=== PATIENT | female | born 1980 | race American Indian/Alaskan Native ===

== ENCOUNTER 2016-09-27 09:50 | Emergency (ER) | payer OTHER ==
[2016-09-27 10:10] VITALS: BP 102/80
--- NOTE | 2016-09-27 10:23 | Emergency Department Report ---
Entered by AARTI WHEATLEY, acting as scribe for GREGORY RIBEIRO NP. Chief Complaint: Chest Pain Stated Complaint: CHEST PAINS Time Seen by Provider: 09/27/16 10:04 - HPI History of Present Illness: Pt is a 35 y.o. female who presents for evaluation of constant, 8-9/10, gas-like , left-sided chest pain radiating into her left shoulder. She notes that her pain is aggravated with deep breathing and lifting her LUE. She denies other focal pain, erythema to the chest, or wound to the chest. NKI. Pt notes that she has been seeing a physician for left shoulder pain and has a recent abnormal shoulder x-ray, causing her physician to order an MRI (not yet had). - ROS Review of Systems: Positive for chest pain radiating into her left shoulder. Negative for other focal pain, erythema, or wound. - Exam Vital Signs: Vital Signs 09/27/16 10:05 Temperature 97.5 F L Pulse Rate 101 H Respiratory 20 Rate Blood Pressure 102/80 O2 Sat by Pulse 100 Oximetry Physical Exam: Constitutional: Well-nourished and well-developed. Cardiovascular: Chest wall TTP. Musculoskeletal: Decreased ROM to left shoulder. Neuro: A&Ox3 MSE screening note: Focused history and physical exam performed. Due to findings the following was ordered: 10:08, Orders placed for: EKG, CBC, CMP, CK, hCG, troponin, and CXR. ED Disposition for MSE Condition: Stable This documentation as recorded by the scribe,AARTI WHEATLEY,accurately reflects the service I personally performed and the decisions made by QUINTIN ramsey TRACY M, NP.
[2016-09-27 10:29] LABS: Basophils % (Auto) 0.7 % (0.0-1.8); Eosinophils % (Auto) 4.1 % (0.0-4.3); Hematocrit 38.3 % (30.3-42.9); Hemoglobin 12.8 gm/dl (10.1-14.3); Mean Corpuscular HGB Conc 33 % (30-34); Mean Corpuscular Hemoglobin 26 pg (28-32); Mean Corpuscular Volume 78 fl (79-97); Platelet Count 208 K/mm3 (140-440); Red Blood Count 4.89 M/mm3 (3.65-5.03); Red Cell Distribution Width 13.8 % (13.2-15.2)
[2016-09-27 11:13] LABS: Alanine Aminotransferase 9 units/L (7-56); Albumin 4.6 g/dL (3.9-5); Albumin/Globulin Ratio 1.6 %; Alkaline Phosphatase 56 units/L (35-129); Anion Gap 16 mmol/L; Blood Urea Nitrogen 9 mg/dL (7-17); Calcium 9.2 mg/dL (8.4-10.2); Carbon Dioxide 28 mmol/L (22-30); Chloride 99.7 mmol/L (98-107); Glucose 80 mg/dL (65-100); Potassium 3.4 mmol/L (3.6-5.0); Sodium 140 mmol/L (137-145); Total Protein 7.5 g/dL (6.3-8.2)
--- NOTE | 2016-09-27 11:54 | XRay Report ---
CHEST 2 VIEWS INDICATION: Chest pain. COMPARISON: None similar. FINDINGS: PA and lateral chest radiographs demonstrate normal cardiomediastinal silhouette. Clear lungs. Slight thoracic dextroscoliosis. CONCLUSION: No acute disease in the chest. Thank you for the opportunity to participate in this patient's care.
== END 2016-09-27 10:15 | disposition left against medical advice (07) ==
LOC: ED 09:50
DX: R07.9 Chest pain, unspecified (principal); M25.512 Pain in left shoulder; Z53.21 Procedure and treatment not carried out due to patient leaving prior to being seen by health care provider
CPT/HCPCS: 36415; 71020; 80053; 82550; 84484; 84703; 85025; 93005; 93010